=== PATIENT | male | born 1970 | race Two or more races ===

== ENCOUNTER 2016-12-21 22:06 | Emergency (ER) | payer OTHER ==
[~2016-12-21] VITALS: Ht 172.7 cm; Wt 133.3 kg
[~2016-12-21 22:06] MED LIST: ALBU8.5H3 INH; COLC0.6C3 PO; GUAI200T3 PO; LEVO750T26 PO; LISI-170 PO; METF500T4 PO; PRED10TA PO
[2016-12-21 22:07] VITALS: BP 190/106
[2016-12-22] MEDS ORDERED: KETOROLAC 30 MG/1 ML ONE (00:16)
[2016-12-22] MEDS ORDERED: HYDROcodone/APAP 5/325 TABLET ONE (00:16)
[2016-12-22] MEDS ORDERED: DIPH,PERTUSS(ACELL),TET VAC/PF 0.5 ML IM-VACC ONE ×2 (00:17→00:30)
[2016-12-22 00:30] LABS: HEMOGLOBIN 16.9 g/dL (13.7-18.0)
[2016-12-22] MEDS ORDERED: KETOROLAC 30 MG/1 ML IM ONE (00:30)
[2016-12-22] MEDS ORDERED: HYDROcodone/APAP 5/325 TABLET PO ONE (00:30)
[2016-12-22 00:43] LABS: BLOOD UREA NITROGEN 11 mg/dL (7-18)
== END 2016-12-22 02:25 | disposition home or self-care (01) ==
LOC: ED 12-22 02:10
DX: M25.522 Pain in left elbow (principal)
CPT/HCPCS: 36415; 73080; 80048; 82040; 84550; 85025; 85651; 90471; 90715; 93005; 96372; 99285; J1885

== ENCOUNTER 2017-10-15 10:41 | Inpatient (IN) | payer OTHER ==
[~2017-10-15] VITALS: Ht 172.7 cm; Wt 128.3 kg
[~2017-10-15 10:41] MED LIST changes: -ALBU8.5H3 INH; +ALBU8.5H8 INH
[2017-10-15 11:59] LABS: MICROSCOPIC AUTO
[2017-10-15] MEDS ORDERED: SODIUM CHLORIDE 0.9% 1,000ML IVBOLUS ONE ×2 (12:00→14:00)
[2017-10-15 12:01] LABS: CULTURE INDICATED? NO
[2017-10-15 12:03] LABS: PH, VENOUS 7.352 pH (7.320-7.420)
[2017-10-15 12:16] LABS: ALBUMIN 3.3 g/dL (3.4-5.0); CALCIUM 8.2 mg/dL (8.5-10.1); CREATININE 1.16 mg/dL (0.7-1.3)
[2017-10-15 12:19] LABS: BASOPHILS # (AUTO) 0.02 x10^3/uL (0-0.1); BASOPHILS % (AUTO) 0 % (0-1); EOSINOPHILS # (AUTO) 0.12 x10^3/uL (0-0.4); EOSINOPHILS % (AUTO) 2 % (1-7); LYMPHOCYTES # (AUTO) 2.03 x10^3/uL (1-3.4); LYMPHOCYTES % (AUTO) 29 % (22-44); MD SCAN; MEAN CORPUSCULAR HEMOGLOBIN 30.3 pg (27.5-34.5); MEAN CORPUSCULAR HGB CONC 35.4 g/dL (33.2-36.2); MEAN CORPUSCULAR VOLUME 85.5 fL (81-97); MEAN PLATELET VOLUME 8.7 fL (7.4-10.4); MONOCYTES # (AUTO) 0.37 x10^3/uL (0.2-0.8); MONOCYTES % (AUTO) 5 % (2-9); NEUTROPHILS # (AUTO) 4.55 x10^3/uL (1.8-6.8); NEUTROPHILS % (AUTO) 64 % (42-75); PLATELET COUNT 316 x10^3/uL (130-400); RED BLOOD COUNT 5.66 x10^6/uL (4.38-5.82); RED CELL DISTRIBUTION WIDTH 12.1 % (9.4-14.8)
[2017-10-15] MEDS ORDERED: ALBUTEROL/IPRATROPIUM 2.5MG/0.5MG, 3 ML ONE (12:21)
[2017-10-15] MEDS ORDERED: SODIUM CHLORIDE 0.9% 1,000 ML IV ONE (12:30)
[2017-10-15] MEDS ORDERED: ALBUTEROL/IPRATROPIUM 2.5MG/0.5MG, 3 ML NPPB ONE (12:30)
[2017-10-15 12:45] LABS: ACETONE, SERUM Small (20mg/dL) mg/dL (Negative)
[2017-10-15] MEDS ORDERED: ALLO300T PO (12:50)
[2017-10-15] MEDS ORDERED: AMLO10TA2 PO (12:50)
[2017-10-15] MEDS ORDERED: LOSA100T6 PO (12:50)
[2017-10-15] MEDS ORDERED: ATOR20TA9 PO (12:50)
[2017-10-15] MEDS ORDERED: METF850T2 PO (12:50)
[2017-10-15 13:14] LABS: ANION GAP 12 mmol/L (5-15); CHLORIDE 100 mmol/L (98-107)
[2017-10-15] MEDS ORDERED: POTASSIUM CHLORIDE IV SCH (15:11)
[2017-10-15] MEDS ORDERED: POTASSIUM PHOSPHATE IV SCH (15:11)
[2017-10-15] MEDS ORDERED: SODIUM CHLORIDE 0.45% IV SCH (15:11)
[2017-10-15] MEDS ORDERED: ONDANSETRON 2MG/ML, 2ML IVPush PRN (15:30)
[2017-10-15] MEDS: INSULIN ASPART 100 UNITS/ML, PEN SQ-INSULIN SCH ×2 (16:00→20:42)
[2017-10-15 17:51] VITALS: BP 113/77
[2017-10-15] MEDS: HEPARIN 5,000 UNITS/ML, 1ML SQ SCH (18:09)
[2017-10-15 19:33] VITALS: BP 137/81
[2017-10-15 20:05] LABS: MICROSCOPIC INDICATED
[2017-10-15 20:18] LABS: CULTURE INDICATED? NO
[2017-10-15] MEDS: metFORMIN 500 MG TABLET PO SCH (20:43)
[2017-10-15] MEDS: DOCUSATE 100 MG CAPSULE PO SCH (20:43)
[2017-10-15] MEDS ORDERED: INSULIN DETEMIR 100 UNITS/ML, PEN SQ-INSULIN SCH (21:00)
[2017-10-16] MEDS: HEPARIN 5,000 UNITS/ML, 1ML SQ SCH ×3 (02:44→17:10)
[2017-10-16 06:03] LABS: BASOPHILS # (AUTO) 0.05 x10^3/uL (0-0.1); BASOPHILS % (AUTO) 1 % (0-1); EOSINOPHILS # (AUTO) 0.27 x10^3/uL (0-0.4); EOSINOPHILS % (AUTO) 3 % (1-7); LYMPHOCYTES # (AUTO) 3.19 x10^3/uL (1-3.4); LYMPHOCYTES % (AUTO) 41 % (22-44); MD NO; MEAN CORPUSCULAR HEMOGLOBIN 30.5 pg (27.5-34.5); MEAN CORPUSCULAR HGB CONC 35.8 g/dL (33.2-36.2); MEAN CORPUSCULAR VOLUME 85.1 fL (81-97); MEAN PLATELET VOLUME 8.9 fL (7.4-10.4); MONOCYTES # (AUTO) 0.57 x10^3/uL (0.2-0.8); MONOCYTES % (AUTO) 7 % (2-9); NEUTROPHILS # (AUTO) 3.72 x10^3/uL (1.8-6.8); NEUTROPHILS % (AUTO) 48 % (42-75); PLATELET COUNT 267 x10^3/uL (130-400); RED CELL DISTRIBUTION WIDTH 12.6 % (9.4-14.8)
[2017-10-16 06:31] LABS: ALKALINE PHOSPHATASE 177 U/L (45-117); CHOLESTEROL, TOTAL 253 mg/dL (140-239); HDL CHOL % 8 % (26-37); HDL CHOLESTEROL (DIRECT) 21 mg/dL (40-60); TRIGLYCERIDES 2816 mg/dL (50-200)
[2017-10-16 06:57] VITALS: BP 129/86
[2017-10-16 07:08] LABS: ALBUMIN 3.2 g/dL (3.4-5.0); ANION GAP 13 mmol/L (5-15); CHLORIDE 101 mmol/L (98-107)
[2017-10-16 07:20] LABS: HEMOGLOBIN A1C 11.9 % (4.2-6.3)
[2017-10-16 07:21] LABS: ALANINE AMINOTRANSFERASE 44 U/L (12-78); BILIRUBIN,TOTAL 0.5 mg/dL (0.2-1.0); CREATININE 0.79 mg/dL (0.7-1.3); FREE T4 (FREE THYROXINE) 1.42 ng/dL (0.76-1.46); TOTAL PROTEIN 6.6 g/dL (6.4-8.2)
[2017-10-16 07:24] LABS: CALCIUM 8.2 mg/dL (8.5-10.1)
[2017-10-16] MEDS: ATORVASTATIN 20 MG TABLET PO SCH (08:45)
[2017-10-16] MEDS: AMLODIPINE 5 MG TABLET PO SCH (08:45)
[2017-10-16] MEDS: ALLOPURINOL 300 MG TABLET PO SCH (08:45)
[2017-10-16] MEDS: LOSARTAN 50MG TABLET PO SCH (08:45)
[2017-10-16] MEDS: metFORMIN 500 MG TABLET PO SCH ×2 (08:45→21:14)
[2017-10-16] MEDS: INSULIN ASPART 100 UNITS/ML, PEN SQ-INSULIN SCH ×4 (08:45→21:15)
[2017-10-16] MEDS: DOCUSATE 100 MG CAPSULE PO SCH ×2 (08:46→21:17)
[2017-10-16] MEDS: SODIUM CHLORIDE 0.9% 1,000 ML IV SCH ×2 (09:30→21:14)
[2017-10-16] MEDS ORDERED: INSULIN DETEMIR 100 UNITS/ML, PEN SQ-INSULIN SCH ×3 (09:30→21:00)
[2017-10-16 13:23] VITALS: BP 125/73
[2017-10-16 14:17] VITALS: BP 132/81
[2017-10-16 20:00] VITALS: BP 132/79
[2017-10-17 02:00] VITALS: BP 123/84
[2017-10-17] MEDS: HEPARIN 5,000 UNITS/ML, 1ML SQ SCH ×3 (03:44→22:19)
[2017-10-17] MEDS: INSULIN ASPART 100 UNITS/ML, PEN SQ-INSULIN SCH ×4 (07:00→17:41)
[2017-10-17 07:43] VITALS: BP 139/70
[2017-10-17] MEDS ORDERED: INSULIN DETEMIR 100 UNITS/ML, PEN SQ-INSULIN SCH ×2 (09:00)
[2017-10-17] MEDS: ALLOPURINOL 300 MG TABLET PO SCH (09:10)
[2017-10-17] MEDS: AMLODIPINE 5 MG TABLET PO SCH (09:10)
[2017-10-17] MEDS: ATORVASTATIN 20 MG TABLET PO SCH (09:10)
[2017-10-17] MEDS: metFORMIN 500 MG TABLET PO SCH ×2 (09:11→22:19)
[2017-10-17] MEDS: LOSARTAN 50MG TABLET PO SCH (09:11)
[2017-10-17] MEDS: DOCUSATE 100 MG CAPSULE PO SCH ×2 (09:11→21:00)
[2017-10-17] MEDS: SODIUM CHLORIDE 0.9% 1,000 ML IV SCH (11:01)
[2017-10-17 14:30] VITALS: BP 126/79
[2017-10-17] MEDS ORDERED: DEXTROSE 50%, 50ML SYRINGE IVPush PRN (17:30)
[2017-10-17] MEDS ORDERED: DEXTROSE 4 GM TAB.CHEW PO PRN (17:30)
[2017-10-17] MEDS ORDERED: GLUCAGON 1 MG IM PRN (17:30)
[2017-10-17] MEDS: INSULIN DETEMIR 100 UNITS/ML, PEN SQ-INSULIN SCH ×2 (17:41→21:00)
[2017-10-17 19:18] VITALS: BP 131/83
[2017-10-17] MEDS: SODIUM CHLORIDE FLUSH 10ML SYR IVF SCH (21:00)
[2017-10-18 01:00] VITALS: BP 142/80
[2017-10-18] MEDS: HEPARIN 5,000 UNITS/ML, 1ML SQ SCH ×2 (03:25→12:00)
[2017-10-18] MEDS: SODIUM CHLORIDE 0.9% 1,000 ML IV SCH (03:28)
[2017-10-18] MEDS: INSULIN DETEMIR 100 UNITS/ML, PEN SQ-INSULIN SCH (06:00)
[2017-10-18 07:29] VITALS: BP 129/86
[2017-10-18] MEDS: INSULIN ASPART 100 UNITS/ML, PEN SQ-INSULIN SCH ×2 (08:08→12:45)
[2017-10-18] MEDS: ATORVASTATIN 20 MG TABLET PO SCH (08:12)
[2017-10-18] MEDS: AMLODIPINE 5 MG TABLET PO SCH (08:12)
[2017-10-18] MEDS: metFORMIN 500 MG TABLET PO SCH (08:12)
[2017-10-18] MEDS: DOCUSATE 100 MG CAPSULE PO SCH (08:13)
[2017-10-18] MEDS: ALLOPURINOL 300 MG TABLET PO SCH (08:13)
[2017-10-18] MEDS: LOSARTAN 50MG TABLET PO SCH (08:13)
[2017-10-18] MEDS: SODIUM CHLORIDE FLUSH 10ML SYR IVF SCH (08:14)
[2017-10-18 14:23] VITALS: BP 120/72
[2017-10-18] MEDS ORDERED: INSU100I28 SQ-INSULIN (15:58)
[2017-10-18] MEDS ORDERED: INSU100C5 SQ-INSULIN (15:58)
== END 2017-10-18 17:00 | disposition home or self-care (01) | DRG 637 ==
LOC: ED 15:10 → EDIP 15:11 → ED 15:59 → 4EST 17:38 → DCLOUNGE 10-18 16:37
PROVIDERS: ADMIT Internal Medicine; ATTEND Internal Medicine
DX: E11.65 Type 2 diabetes mellitus with hyperglycemia (principal); E11.00 Type 2 diabetes mellitus with hyperosmolarity without nonketotic hyperglycemic-hyperosmolar coma (NKHHC); J96.20 Acute and chronic respiratory failure, unspecified whether with hypoxia or hypercapnia; Z68.41 Body mass index [BMI] 40.0-44.9, adult; E66.01 Morbid (severe) obesity due to excess calories; I10 Essential (primary) hypertension; M10.9 Gout, unspecified; E78.00 Pure hypercholesterolemia, unspecified; Z90.49 Acquired absence of other specified parts of digestive tract; F17.210 Nicotine dependence, cigarettes, uncomplicated; J45.909 Unspecified asthma, uncomplicated; Z91.14 Patient's other noncompliance with medication regimen
CPT/HCPCS: 36415; 71045; 80048; 80053; 80061; 81001; 82010; 82040; 82803; 82947; 82962; 83036; 84439; 84443; 84481; 85025; 93005; 94640; 96360; 96361; J1644; J1815; J3480; J7620; J7030

== ENCOUNTER 2019-01-06 13:41 | Inpatient (IN) | payer OTHER ==
[~2019-01-06] VITALS: Ht 172.7 cm; Wt 127.4 kg
[~2019-01-06 13:41] MED LIST changes: +ALLO100T30 PO; +ALLO300T PO; +AMLO10TA8 PO; +ATOR20TA37 PO; +FURO20TA3 PO; +GLIP10TA13 PO; +INDO50CA5 PO; +INSU100C5 SQ-INSULIN; +INSU100I11 SQ-INSULIN; +INSU100I13 SQ-INSULIN; +INSU100I28 SQ-INSULIN; +LISI-167 PO; +LOSA100T14 PO; +LOSA25TA25 PO; +METF500T17 PO; -METF500T4 PO; +METF850T10 PO; +POTA20TA14 PO
[2019-01-06] MEDS ORDERED: SODIUM CHLORIDE 0.9% 1,000ML IVBOLUS ONE ×2 (14:00→15:30)
[2019-01-06] MEDS ORDERED: SODIUM CHLORIDE FLUSH 10ML SYR IVF ONE (14:00)
--- NOTE | 2019-01-06 14:06 | NUR ---
PT TAKEN FOR IMAGING
[2019-01-06 14:14] LABS: PH, VENOUS 7.384 pH (7.320-7.420)
[2019-01-06 14:16] LABS: FIO2 ROOM AIR %
[2019-01-06 14:17] LABS: BASOPHILS # (AUTO) 0.02 x10^3/uL (0-0.1); BASOPHILS % (AUTO) 0 % (0-1); EOSINOPHILS # (AUTO) 0.22 x10^3/uL (0-0.4); EOSINOPHILS % (AUTO) 3 % (1-7); LYMPHOCYTES # (AUTO) 3.54 x10^3/uL (1-3.4); LYMPHOCYTES % (AUTO) 43 % (22-44); MD NO; MEAN CORPUSCULAR HEMOGLOBIN 30.4 pg (27.5-34.5); MEAN CORPUSCULAR HGB CONC 35.5 g/dL (33.2-36.2); MEAN CORPUSCULAR VOLUME 85.6 fL (81-97); MONOCYTES # (AUTO) 0.44 x10^3/uL (0.2-0.8); MONOCYTES % (AUTO) 5 % (2-9); NEUTROPHILS # (AUTO) 4.02 x10^3/uL (1.8-6.8); NEUTROPHILS % (AUTO) 49 % (42-75); PLATELET COUNT 287 x10^3/uL (130-400); RED BLOOD COUNT 5.29 x10^6/uL (4.38-5.82); RED CELL DISTRIBUTION WIDTH 12.6 % (9.4-14.8)
[2019-01-06 14:26] LABS: ALBUMIN 3.6 g/dL (3.4-5.0); ANION GAP 11 mmol/L (5-15); CALCIUM 9.1 mg/dL (8.5-10.1); CHLORIDE 96 mmol/L (98-107); CREATININE 1.07 mg/dL (0.7-1.3)
[2019-01-06 14:49] LABS: ACETONE, SERUM Trace (10mg/dL) mg/dL (Negative)
[2019-01-06 15:05] LABS: MICROSCOPIC AUTO
[2019-01-06 15:07] LABS: CULTURE INDICATED? NO
--- NOTE | 2019-01-06 15:14 | NUR ---
BLOOD SUGAR CHECKED AFTER 1ST BLOUS OF FLUIDS, 539, REPORTED TO PA. SECOND BOLUS TO BE GIVEN. FAMILY AT BEDSIDE, CALL LIGHT WITHIN REACH
[2019-01-06] MEDS ORDERED: INSULIN SINGLE DOSE, ER SQ-INSULIN ONE (16:12)
[2019-01-06] MEDS ORDERED: INSULIN REGULAR 100 UNITS/ML, 3ML VIAL SQ-INSULIN SCH (16:30)
[2019-01-06] MEDS ORDERED: SODIUM CHLORIDE FLUSH 10ML SYR IVF PRN (17:30)
[2019-01-06] MEDS ORDERED: POTASSIUM CHLORIDE 20 MEQ TAB.ER.PRT PO ONE (18:00)
[2019-01-06] MEDS ORDERED: POLYETHYLENE GLYCOL 17 GM PACKET PO PRN (18:00)
[2019-01-06] MEDS ORDERED: HYDROcodone/APAP 5/325 TABLET PO PRN (18:00)
[2019-01-06] MEDS: HEPARIN 5,000 UNITS/ML, 1ML SQ SCH (18:00)
[2019-01-06] MEDS ORDERED: ONDANSETRON 2MG/ML, 2ML IVPush PRN (18:00)
[2019-01-06] MEDS ORDERED: GLUCAGON 1 MG IM PRN (18:00)
[2019-01-06] MEDS ORDERED: ACETAMINOPHEN 325 MG TABLET PO PRN (18:00)
[2019-01-06] MEDS ORDERED: DEXTROSE 4 GM TAB.CHEW PO PRN (18:00)
[2019-01-06] MEDS ORDERED: ONDANSETRON ODT 4 MG PO PRN (18:00)
[2019-01-06] MEDS ORDERED: INSULIN REGULAR 100 UNITS/ML, 3ML VIAL IVPush ONE (18:00)
[2019-01-06] MEDS ORDERED: BISACODYL 10 MG SUPP PR PRN (18:00)
[2019-01-06] MEDS ORDERED: hydrALAzine 20 MG/ML, 1ML IVPush PRN (18:00)
[2019-01-06] MEDS ORDERED: LABETALOL 5MG/ML, 20ML IVPush PRN (18:00)
[2019-01-06] MEDS ORDERED: DOCUSATE 100 MG CAPSULE PO PRN (18:00)
[2019-01-06] MEDS ORDERED: DEXTROSE 50%, 50ML SYRINGE IVPush PRN (18:00)
--- NOTE | 2019-01-06 18:00 | NUR ---
HOSPITALIST TO BEDSIDE TO ADMIT PT.
--- NOTE | 2019-01-06 18:27 | NUR ---
REPORT CALLED TO MARTA RIVAS, PT READY FOR TRANSPORT
[2019-01-06 19:04] VITALS: BP 136/87
[2019-01-06 19:10] LABS: HEMOGLOBIN A1C 11.9 % (4.2-6.3)
[2019-01-06 19:34] VITALS: BP 117/79
[2019-01-06] MEDS: SODIUM CHLORIDE 0.9% 1,000 ML IV SCH (20:31)
[2019-01-06] MEDS: INSULIN LISPRO 100 UNITS/ML, PEN SQ-INSULIN SCH (20:32)
[2019-01-06] MEDS: SODIUM CHLORIDE FLUSH 10ML SYR IVF SCH (20:33)
[2019-01-06] MEDS ORDERED: LISINOPRIL 10 MG TABLET PO SCH (21:00)
[2019-01-06] MEDS ORDERED: ALLOPURINOL 100 MG TABLET PO SCH (21:00)
[2019-01-06] MEDS ORDERED: ATORVASTATIN 20 MG TABLET PO SCH (21:00)
[2019-01-06 23:50] LABS: ANION GAP 8 mmol/L (5-15); CALCIUM 8.7 mg/dL (8.5-10.1); CHLORIDE 104 mmol/L (98-107); CREATININE 0.87 mg/dL (0.7-1.3)
[2019-01-07] MEDS: HEPARIN 5,000 UNITS/ML, 1ML SQ SCH ×2 (02:00→09:40)
[2019-01-07 02:07] VITALS: BP 121/76
[2019-01-07 06:10] LABS: BASOPHILS # (AUTO) 0.03 x10^3/uL (0-0.1); BASOPHILS % (AUTO) 0 % (0-1); EOSINOPHILS # (AUTO) 0.29 x10^3/uL (0-0.4); EOSINOPHILS % (AUTO) 3 % (1-7); LYMPHOCYTES # (AUTO) 3.46 x10^3/uL (1-3.4); LYMPHOCYTES % (AUTO) 39 % (22-44); MD NO; MEAN CORPUSCULAR HEMOGLOBIN 30.2 pg (27.5-34.5); MEAN CORPUSCULAR HGB CONC 34.9 g/dL (33.2-36.2); MEAN CORPUSCULAR VOLUME 86.4 fL (81-97); MONOCYTES # (AUTO) 0.52 x10^3/uL (0.2-0.8); MONOCYTES % (AUTO) 6 % (2-9); NEUTROPHILS % (AUTO) 52 % (42-75); PLATELET COUNT 283 x10^3/uL (130-400); RED BLOOD COUNT 5.12 x10^6/uL (4.38-5.82); RED CELL DISTRIBUTION WIDTH 12.9 % (9.4-14.8)
[2019-01-07 06:23] LABS: CHLORIDE 106 mmol/L (98-107)
[2019-01-07] MEDS: SODIUM CHLORIDE 0.9% 1,000 ML IV SCH (06:36)
[2019-01-07 06:43] LABS: ANION GAP 9 mmol/L (5-15); CALCIUM 8.6 mg/dL (8.5-10.1); CHOL/HDL RATIO 8.5; CHOLESTEROL, TOTAL 222 mg/dL (140-239); CREATININE 0.74 mg/dL (0.7-1.3); HDL CHOL % 12 % (26-37); HDL CHOLESTEROL (DIRECT) 26 mg/dL (40-60); TRIGLYCERIDES 1857 mg/dL (50-200)
[2019-01-07] MEDS ORDERED: INSULIN GLARGINE 100 UNITS/ML, PEN SQ-INSULIN SCH (08:00)
[2019-01-07] MEDS: INSULIN LISPRO 100 UNITS/ML, PEN SQ-INSULIN SCH ×2 (08:26→11:28)
[2019-01-07] MEDS: SODIUM CHLORIDE FLUSH 10ML SYR IVF SCH (08:26)
[2019-01-07 08:32] VITALS: BP 133/91
[2019-01-07] MEDS ORDERED: AMLODIPINE 10 MG TAB PO SCH (09:00)
[2019-01-07] MEDS ORDERED: metFORMIN 500 MG TABLET PO SCH (09:00)
[2019-01-07] MEDS ORDERED: INSU100I13 SQ-INSULIN (13:44)
[2019-01-07] MEDS ORDERED: ATOR40TA78 PO ×2 (13:44→13:56)
[2019-01-07] MEDS ORDERED: INSU100I11 SQ-INSULIN (13:44)
== END 2019-01-07 15:32 | disposition home or self-care (01) | DRG 638 ==
LOC: ED 15:58 → EDIP 17:24 → 3NE 18:49 → DCLOUNGE 01-07 15:00
PROVIDERS: ADMIT Hospitalist; ATTEND Hospitalist
DX: E11.00 Type 2 diabetes mellitus with hyperosmolarity without nonketotic hyperglycemic-hyperosmolar coma (NKHHC) (principal); E87.1 Hypo-osmolality and hyponatremia; J45.909 Unspecified asthma, uncomplicated; E78.00 Pure hypercholesterolemia, unspecified; E78.1 Pure hyperglyceridemia; E78.5 Hyperlipidemia, unspecified; I10 Essential (primary) hypertension; K02.9 Dental caries, unspecified; M10.9 Gout, unspecified; Z87.891 Personal history of nicotine dependence; Z91.19 Patient's noncompliance with other medical treatment and regimen
CPT/HCPCS: 36415; 70100; 71046; 80048; 80061; 81001; 82010; 82040; 82803; 82962; 83036; 83735; 83930; 84100; 84145; 85025; 96360; 96372; G0378; J1815; J7030

== ENCOUNTER 2019-08-28 08:40 | Outpatient (CLI) | payer OTHER ==
[~2019-08-28 08:40] MED LIST changes: +ATOR40TA78 PO; -GUAI200T3 PO; +GUAI200T37 PO; +INDO50CA15 PO; -INDO50CA5 PO
[2019-08-28] MEDS ORDERED: OMNIPAQUE 350 MG/ML, 75ML BOTTLE ONE (15:16)
== END 2019-08-28 23:59 | disposition home or self-care (01) ==
LOC: CFH 08:40
PROVIDERS: ATTEND Physician Assistant
DX: R91.1 Solitary pulmonary nodule (principal); R91.8 Other nonspecific abnormal finding of lung field; E11.9 Type 2 diabetes mellitus without complications; I10 Essential (primary) hypertension; E66.9 Obesity, unspecified
CPT/HCPCS: 71260; Q9967

== ENCOUNTER 2021-03-14 10:24 | Observation (INO) | payer OTHER ==
[~2021-03-14] VITALS: Ht 172.7 cm; Wt 127.1 kg
[~2021-03-14 10:24] MED LIST changes: +AMLO-211 PO; -AMLO10TA8 PO
--- NOTE | 2021-03-14 10:35 | NUR ---
[facility] 296 in triage.
--- NOTE | 2021-03-14 10:48 | NUR ---
PT STATES HAS BEEN UNDER A LOT OF STRESS CALLED PCP FOR C/O CP WHICH STARTED AROUND 0800. CALLED THE PCP AT 930 STATED THAT HE HAD CP ON LEFT SIDE WITH NUMBNESS AND TINGLING THAT RADIATED INTO THE LEFT ARM.
[2021-03-14] MEDS ORDERED: ASPIRIN 81 MG TABLET CHEW PO ONE (11:00)
[2021-03-14] MEDS ORDERED: NITROGLYCERIN OINT 2%, 1GM TP ONE ×2 (11:00→12:22)
[2021-03-14] MEDS ORDERED: SODIUM CHLORIDE FLUSH 10ML SYR IVF ONE (11:00)
[2021-03-14 11:21] LABS: BASOPHILS % (AUTO) 1 % (0-1); EOSINOPHILS % (AUTO) 2 % (1-7); LYMPHOCYTES % (AUTO) 30 % (22-44); MEAN CORPUSCULAR HEMOGLOBIN 29.6 pg (27.5-34.5); MEAN CORPUSCULAR HGB CONC 35.1 g/dL (33.2-36.2); MEAN PLATELET VOLUME 8.6 fL (7.4-10.4); MONOCYTES % (AUTO) 6 % (2-9); NEUTROPHILS % (AUTO) 62 % (42-75); PLATELET COUNT 313 x10^3/uL (130-400); RED BLOOD COUNT 5.84 x10^6/uL (4.38-5.82); RED CELL DISTRIBUTION WIDTH 13.4 % (9.4-14.8)
[2021-03-14 11:23] LABS: ALANINE AMINOTRANSFERASE 57 U/L (12-78); ALBUMIN 3.8 g/dL (3.4-5.0); ANION GAP 11 mmol/L (5-15); CHLORIDE 103 mmol/L (98-107)
[2021-03-14 11:28] LABS: ALKALINE PHOSPHATASE 158 U/L (45-117); BILIRUBIN,TOTAL 0.5 mg/dL (0.2-1.0); CREATININE 0.82 mg/dL (0.7-1.3); TOTAL PROTEIN 7.5 g/dL (6.4-8.2); TROPONIN I < 0.015 ng/mL (0.000-0.045)
[2021-03-14 11:50] LABS: MICROSCOPIC AUTO
[2021-03-14] MEDS ORDERED: ASPIRIN 81 MG TABLET CHEW ONE (12:23)
--- NOTE | 2021-03-14 12:47 | NUR ---
PT STATES FEELS BETTER AFTER MEDICATION BUT PAIN IS STILL AT A 7/10 PAIN IN THE CHEST.
--- NOTE | 2021-03-14 13:47 | NUR ---
JAYLEEN RN: REPORT CALLED TO MONY RIVAS, POC DISCUSSED.
[2021-03-14] MEDS ORDERED: ACETAMINOPHEN 325 MG TABLET PO PRN (14:00)
[2021-03-14] MEDS ORDERED: ONDANSETRON 2MG/ML, 2ML IVPush PRN (14:00)
[2021-03-14] MEDS ORDERED: KETOROLAC 30 MG/1 ML IV PRN (14:00)
[2021-03-14] MEDS ORDERED: TEMAZEPAM 15 MG CAPSULE PO PRN (14:00)
[2021-03-14 14:18] VITALS: BP 137/72
[2021-03-14] MEDS ORDERED: SEMA1PEN SQ (14:28)
[2021-03-14] MEDS ORDERED: ASPI81TA45 PO (14:28)
[2021-03-14] MEDS ORDERED: LOSA100T14 PO (14:28)
[2021-03-14] MEDS ORDERED: ENOXAPARIN 40 MG/0.4 ML SQ SCH (14:30)
[2021-03-14] MEDS: INSULIN LISPRO 100 UNITS/ML, PEN SQ-INSULIN SCH ×2 (16:16→21:12)
[2021-03-14 17:33] LABS: TROPONIN I < 0.015 ng/mL (0.000-0.045)
[2021-03-14 19:48] VITALS: BP 129/74
[2021-03-14] MEDS ORDERED: ATORVASTATIN 40 MG TABLET PO SCH (21:00)
[2021-03-14] MEDS ORDERED: ALLOPURINOL 100 MG TABLET PO SCH (21:00)
[2021-03-14 23:47] LABS: TROPONIN I < 0.015 ng/mL (0.000-0.045)
[2021-03-15 01:23] VITALS: BP 134/76
[2021-03-15 04:40] LABS: CHOLESTEROL, TOTAL 178 mg/dL (140-239)
[2021-03-15 04:48] LABS: CHOL/HDL RATIO 6.6; HDL CHOL % 15 % (26-37); HDL CHOLESTEROL (DIRECT) 27 mg/dL (40-60); TRIGLYCERIDES 1211 mg/dL (50-200)
[2021-03-15 06:39] VITALS: BP 149/92
[2021-03-15] MEDS ORDERED: INSULIN GLARGINE 100 UNITS/ML, PEN SQ-INSULIN SCH (08:00)
[2021-03-15] MEDS: INSULIN LISPRO 100 UNITS/ML, PEN SQ-INSULIN SCH ×3 (08:38→16:00)
[2021-03-15] MEDS ORDERED: LOSARTAN 100 MG TAB PO SCH (09:00)
[2021-03-15] MEDS ORDERED: AMLODIPINE 10 MG TAB PO SCH (09:00)
[2021-03-15] MEDS ORDERED: ATOR-2 PO (13:36)
[2021-03-15 14:09] VITALS: BP 137/79
== END 2021-03-15 17:15 | disposition home or self-care (01) ==
LOC: ED 11:44 → INTOOBSV 12:42 → 5SO 12:42 → SUATTDRO 13:00
PROVIDERS: ADMIT Internal Medicine; ATTEND Internal Medicine
DX: R07.89 Other chest pain (principal); E11.65 Type 2 diabetes mellitus with hyperglycemia; E78.5 Hyperlipidemia, unspecified; G44.40 Drug-induced headache, not elsewhere classified, not intractable; I10 Essential (primary) hypertension; E78.1 Pure hyperglyceridemia; J45.909 Unspecified asthma, uncomplicated; F10.20 Alcohol dependence, uncomplicated; M1A.9XX0 Chronic gout, unspecified, without tophus (tophi); E78.00 Pure hypercholesterolemia, unspecified; T46.3X5A Adverse effect of coronary vasodilators, initial encounter; Z79.4 Long term (current) use of insulin; Z79.899 Other long term (current) drug therapy; Z68.41 Body mass index [BMI] 40.0-44.9, adult; Z87.891 Personal history of nicotine dependence
CPT/HCPCS: 36415; 71045; 80053; 80061; 81001; 82962; 83036; 84484; 85025; 85379; 93005; 93017; 96372; 99285; G0378; J1650; J1815